=== PATIENT | male | born 1945 | race Caucasian/White ===

== ENCOUNTER 2016-11-06 11:48 | Inpatient (IN) ==
[2016-11-06] MEDS: Budesonide/Formoterol 160/4.5 MDI IH SCH (16:25)
[2016-11-06] MEDS: MOM Conc 10 ML UD.LIQ PO PRN (16:26)
[2016-11-07 04:33] LABS: Basophils # 0.1 K/mcL (0.0-0.2); Basophils % 0.8 %; Eosinophils # 0.4 K/mcL (0.0-0.6); Eosinophils % 6.2 %; Hematocrit 40.2 % (37.5-50.1); Hemoglobin 12.7 g/dL (12.9-16.9); Immature Granulocytes % 0.5 % (0-4); Lymphocytes # 1.3 K/mcL (0.6-4.6); Lymphocytes % 20.4 %; Mean Corpuscular HGB Conc 31.6 g/dL (31.6-35.5); Mean Corpuscular Hemoglobin 23.7 pg (28.0-33.3); Mean Corpuscular Volume 75.1 fL (83.0-100.0); Mean Platelet Volume 9.4 fL (9.4-12.4); Monocytes # 0.6 K/mcL (0.0-1.3); Monocytes % 9.4 %; Neutrophils # 3.9 K/mcL (1.6-8.9); Platelet Count 320 K/mcL (140-400); Red Blood Count 5.35 M/mcL (4.19-5.50); Red Cell Distribution Width 16.3 % (11.5-14.5); Segmented Neutrophils % 62.7 %
[2016-11-07 04:41] LABS: INR 1.3; Prothrombin Time 13.6 Seconds (9.4-12.1)
[2016-11-07 04:43] LABS: Activated Partial Thrombo Time 36.1 Seconds (26.0-36.0)
[2016-11-07 04:50] LABS: BUN/Creatinine Ratio 22 (6-26); Blood Urea Nitrogen 21 mg/dL (8-26); Carbon Dioxide 26 mEq/L (19-29); Chloride 102 mEq/L (98-109); Glucose 99 mg/dL (70-99); Osmolality,Calculated 293 (280-300); Potassium 4.2 mEq/L (3.5-4.5); Sodium 140 mEq/L (136-145); eGFR For African Americans > 60 (> 60); eGFR For Non-African Americans > 60 (> 60)
[2016-11-07] MEDS ORDERED: Aspirin 325 MG TABLET PO SCH (09:00)
[2016-11-07] MEDS ORDERED: levoFLOXacin 500 MG TABLET PO SCH (09:00)
[2016-11-07] MEDS: MOM Conc 10 ML UD.LIQ PO PRN (09:02)
[2016-11-07] MEDS: amLODIPine 5 MG TABLET PO SCH (09:03)
[2016-11-07] MEDS: Vitamin B Complex/Vit C/Vit E 1 EACH TABLET PO SCH (09:03)
[2016-11-07] MEDS: Diltiazem CD (24hr) 120 MG CAPSULE PO SCH (09:03)
[2016-11-07] MEDS: Cholecalciferol (D-3) 1,000 UNIT TABLET PO SCH (09:04)
[2016-11-07] MEDS: Finasteride 5 MG TABLET PO SCH (09:04)
[2016-11-07] MEDS: INCRUSE ELLIPTA IH SCH (09:06)
[2016-11-07] MEDS: OMEGA 3 FISH OIL PO SCH (09:07)
[2016-11-07] MEDS: Budesonide/Formoterol 160/4.5 MDI IH SCH ×2 (09:54→22:54)
[2016-11-07] MEDS ORDERED: Ibuprofen 400 MG TABLET PO ONE (13:53)
--- NOTE | 2016-11-07 16:26 | Internal Med History&Physical ---
Date of Encounter: 11/07/16 Time of Encounter: 15:50 Assessment and Plan (1) Pubic ramus fracture Current visit: No Status: Acute Continue PT and OT intervention with analgesics. Qualifiers: Encounter type: initial encounter Fracture type: closed Laterality: left Qualified Code(s): S32.592A - Other specified fracture of left pubis, initial encounter for closed fracture (2) Anemia Current visit: Yes Status: Chronic We will order anemia testing in a.m. Qualifiers: Anemia type: unspecified type Qualified Code(s): D64.9 - Anemia, unspecified (3) Gout Current visit: Yes Status: Chronic We will check uric acid level in a.m. Qualifiers: Gout site: unspecified site Gout etiology: unspecified cause Chronicity: chronic Presence of tophus: without tophus Qualified Code(s): M1A.9XX0 - Chronic gout, unspecified, without tophus (tophi) (4) Hypothyroid Current visit: Yes Status: Chronic We will check TSH level in a.m. Qualifiers: Hypothyroidism type: unspecified Qualified Code(s): E03.9 - Hypothyroidism , unspecified (5) HTN (hypertension) Current visit: No Status: Chronic Continue Norvasc, Cardizem, and Lopressor. Qualifiers: Hypertension type: essential hypertension Qualified Code(s): I10 - Essential (primary) hypertension Internal Medicine - H&P: HPI Chief complaint: Pelvic fracture Admitted From: Hospital to Hospital Transfer Plans for Post Hospital Care: Home History of present illness: Mr. Marley is a 71 year old male who was hospitalized at [facility] November 01 after experiencing a fall fracturing the left pubic ramus review was treated nonoperatively and discharged to [facility] swing bed for rehabilitation therapy prior to returning to independent living at home. His musk skeletal history is significant for 2 previous left hip replacement ( June 2012 and July 2013), right wrist fracture, left shoulder injury with rotator cuff repair, right rotator cuff repair, and distal left femoral fracture. He also claims a history of gout. Past Med Surg Social Fam HX - Past Medical History Medical history: COPD, GERD, hepatitis, hyperlipidemia, hypertension, thyroid disease, other Psychiatric history: anxiety, depression - Past Surgical History Surgical History: appendectomy, orthopedic, other, other - Social History Smoking Status: Former smoker Smokeless Tobacco Status: No Alcohol use: none Drug use: none - Family History Father Adopted: Yes (pt has no knowledge of family history) Internal Medicine - H&P: Meds Acetaminophen [Tylenol] 500 mg PO Q6HR PRN 09/02/15 [History] Albuterol Sulfate [Ventolin Hfa] 2 puff IH Q4H 09/02/15 [History] Amlodipine Besylate 2.5 mg PO DAILY 09/02/15 [History] Budesonide/Formoterol 160/4.5 [Symbicort 160/4.5] 2 puff IH BIDR 09/02/15 [ History] Cholecalciferol (Vitamin D3) [Vitamin D3] 1,000 unit PO DAILY 09/02/15 [History] Diltiazem HCl [Diltiazem ER] 120 mg PO DAILY 09/02/15 [History] Doxepin HCl 25 mg PO BID 09/02/15 [History] Finasteride [Proscar] 5 mg PO DAILY 09/02/15 [History] Levothyroxine [Synthroid] 37.5 mcg PO DAILY 09/02/15 [History] Metoprolol [Lopressor] 25 mg PO BID 09/02/15 [History] [place]-3/Dha/Epa/Fish Oil [Fish Oil 1,000 mg Softgel] 1 cap PO DAILY 09/02/15 [ History] Omeprazole [PriLOSEC] 20 mg PO DAILY 09/02/15 [History] Simvastatin [Zocor] 20 mg PO HS 09/02/15 [History] Vitamin B Complex Vit C No.3 [B Complex with Vitamin C] 1 cap PO DAILY 09/02/15 [History] Solifenacin Succinate [Vesicare] 10 mg PO DAILY 11/02/16 [History] Umeclidinium Drew [Incruse Ellipta] 1 puff IH DAILY 11/02/16 [History] Aspirin 325 mg PO DAILY #30 tablet 11/06/16 [Rx] Docusate [Colace] 100 mg PO BID PRN cap 11/06/16 [Rx] GuaiFENesin/Dextromethorphan [Robitussin/Dm] 10 ml PO Q6HR PRN 11/06/16 [Rx] OxyCODONE/APAP 5/325 [Percocet 5/325 MG] 1 each PO Q6HR PRN #14 tab 11/06/16 [Rx ] levoFLOXacin [Levaquin] 500 mg PO DAILY 5 Days 11/06/16 [Rx] Allergies No Known Allergies Allergy (Verified 12/21/15 21:40) All Systems PM: A 10-system review of systems was performed and is negative for pertinent findings except as documented above in the HPI. Review of systems: Gen.: He states his weight has fluctuated several pounds in the past few years based on his need and use of Synthroid Cardiovascular: He has history of hypertension but denies NC heart failure angina DVT or pulmonary embolus. Reports a negative exercise test approximately 10 years ago Respiratory: He smoked from age [age] up to 2 packs per day. Has a diagnosis of COPD but does not use home oxygen. He gets dyspneic occasionally on exertion. GI: He was a past IV drug user and has history of hepatitis C. He has not received treatment. He denies other disorders of his liver gallbladder or exocrine pancreas : He has BPH. He denies other kidney or bladder disorders Neurologic: He denies large distribution strokes or seizures. 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 He does not use assistive device for walking. Endocrine: He has hypothyroidism and hyperlipidemia. He denies diabetes Hematology/oncology: He has had anemia in the past. He denies internal malignancies or other blood disorders Psychiatric: He has had joanie in the past and has anxiety at times. Denies other mental health issues Musk skeletal: As per history of present illness - Constitutional Vitals: Temp Pulse Resp BP Pulse Ox 98.5 F 62 20 116/77 92 11/07/16 15:28 11/07/16 15:28 11/07/16 15:28 11/07/16 15:28 11/07/16 15:28 Exam: Gen.: He is a well-developed well-nourished male lying in bed who appears in no acute distress HEENT: Head is atraumatic and normocephalic. Eyes: EOMI. There is no scleral icterus. Mouth: Mucosa is moist. Neck: Supple and nontender. There is no thyromegaly or adenopathy noted. Heart: Regular without murmurs gallops or ectopics Lungs: No wheezes or crackles are heard. Abdomen: Soft and nontender. No masses or guarding are noted. Extremities: There is no cyanosis edema or clubbing noted. Dorsalis pedis and posterior tibial pulses are trace palpable bilaterally. His feet are warm to touch. Neurologic: Mental status: He is talkative and a good historian. Cranial nerves : Smile is symmetric. Forehead wrinkles bilaterally. Tongue protrudes midline. EOMI. He is slightly hard of hearing. Motor: There is no pronator drift. Cerebellar: Finger to nose is intact bilaterally. Skin: Warm and dry Internal Med - H&P Results - Labs CBC & Chem 7: 11/07/16 04:25 11/07/16 04:25 Labs: Short CBC 11/07/16 Range/Units 04:25 WBC 6.3 (4.3-11.1) K/mcL Hgb 12.7 L (12.9-16.9) g/dL Hct 40.2 (37.5-50.1) % Plt Count 320 (140-400) K/mcL Neutrophils # 3.9 (1.6-8.9) K/mcL BMP 11/07/16 04:25 Sodium 140 Potassium 4.2 Chloride 102 Carbon Dioxide 26 BUN 21 Creatinine 0.97 Glucose 99 Calcium 10.0
[2016-11-07] MEDS: *HR* OxyCODONE/APAP 5/325 TABLET PO PRN (21:09)
[2016-11-08 05:14] LABS: Basophils # 0.1 K/mcL (0.0-0.2); Basophils % 0.9 %; Eosinophils # 0.4 K/mcL (0.0-0.6); Eosinophils % 7.8 %; Hematocrit 39.2 % (37.5-50.1); Hemoglobin 12.4 g/dL (12.9-16.9); Immature Granulocytes % 0.4 % (0-4); Lymphocytes % 17.3 %; Mean Corpuscular HGB Conc 31.6 g/dL (31.6-35.5); Mean Corpuscular Hemoglobin 23.9 pg (28.0-33.3); Mean Corpuscular Volume 75.5 fL (83.0-100.0); Mean Platelet Volume 9.7 fL (9.4-12.4); Monocytes # 0.5 K/mcL (0.0-1.3); Monocytes % 9.4 %; Neutrophils # 3.6 K/mcL (1.6-8.9); Platelet Count 326 K/mcL (140-400); Red Blood Count 5.19 M/mcL (4.19-5.50); Red Cell Distribution Width 16.1 % (11.5-14.5); Segmented Neutrophils % 64.2 %
[2016-11-08 05:54] LABS: Thyroid Stimulating Hormone 2.593 mcIU/mL (0.350-4.840)
[2016-11-08] MEDS: Diltiazem CD (24hr) 120 MG CAPSULE PO SCH (10:11)
[2016-11-08] MEDS: amLODIPine 5 MG TABLET PO SCH (10:12)
[2016-11-08] MEDS: Vitamin B Complex/Vit C/Vit E 1 EACH TABLET PO SCH (10:13)
[2016-11-08] MEDS: OMEGA 3 FISH OIL PO SCH (10:13)
[2016-11-08] MEDS: Finasteride 5 MG TABLET PO SCH (10:13)
[2016-11-08] MEDS: Cholecalciferol (D-3) 1,000 UNIT TABLET PO SCH (10:14)
--- NOTE | 2016-11-08 10:34 | Internal Med Progress Note ---
Date of Encounter: 11/08/16 Time of Encounter: 10:25 - Assessment and plan (1) Pubic ramus fracture Current Visit: No Status: Acute Assessment and plan: November 08. Continue PT and OT intervention with analgesics. Qualifiers: Encounter type: initial encounter Fracture type: closed Laterality: left Qualified Code(s): S32.592A - Other specified fracture of left pubis, initial encounter for closed fracture (2) Anemia Current Visit: Yes Status: Chronic Assessment and plan: November 08. Anemia testing is pending Qualifiers: Anemia type: unspecified type Qualified Code(s): D64.9 - Anemia, unspecified (3) Gout Current Visit: Yes Status: Chronic Assessment and plan: November 08. Uric acid level acceptable at 5.0. Qualifiers: Gout site: unspecified site Gout etiology: unspecified cause Chronicity: chronic Presence of tophus: without tophus Qualified Code(s): M1A.9XX0 - Chronic gout, unspecified, without tophus (tophi) (4) Hypothyroid Current Visit: Yes Status: Chronic Assessment and plan: November 08. TSH level was normal at 2.593. Tinea present dose Synthroid Qualifiers: Hypothyroidism type: unspecified Qualified Code(s): E03.9 - Hypothyroidism , unspecified (5) HTN (hypertension) Current Visit: No Status: Chronic Assessment and plan: November 08. Continue Norvasc, Cardizem, and Lopressor Qualifiers: Hypertension type: essential hypertension Qualified Code(s): I10 - Essential (primary) hypertension - Subjective Interval history: November 08. He has no new complaints and feels well. - Constitutional Vitals: Temp Pulse Resp BP Pulse Ox 97.6 F 72 16 125/75 97 11/08/16 07:34 11/08/16 07:34 11/08/16 07:34 11/08/16 07:34 11/08/16 07:34 Exam: He is sitting in a chair at bedside and appears comfortable. His affect is bright and cheerful. I reviewed his medications and lab results. Internal Medicine: Result - Labs CBC & Chem 7: 11/08/16 04:10 11/07/16 04:25 Labs: Short CBC 11/08/16 Range/Units 04:10 WBC 5.7 (4.3-11.1) K/mcL Hgb 12.4 L (12.9-16.9) g/dL Hct 39.2 (37.5-50.1) % Plt Count 326 (140-400) K/mcL Neutrophils # 3.6 (1.6-8.9) K/mcL - ABG Interpretation ABG results: PT/INR, D-dimer PT 13.6 Seconds (9.4-12.1) H 11/07/16 04:25 Consult Discharge Plan - Plan Referrals: Richardson Spring MD [Primary Care Provider] - 1 week
[2016-11-08] MEDS: Budesonide/Formoterol 160/4.5 MDI IH SCH ×2 (10:48→22:31)
[2016-11-08] MEDS: *HR* OxyCODONE/APAP 5/325 TABLET PO PRN ×2 (11:34→22:11)
[2016-11-08] MEDS: INCRUSE ELLIPTA IH SCH (11:35)
[2016-11-08 18:10] LABS: Folate 10.5 ng/mL (7.0-31.4)
[2016-11-09] MEDS: Diltiazem CD (24hr) 120 MG CAPSULE PO SCH (08:57)
[2016-11-09] MEDS: amLODIPine 5 MG TABLET PO SCH (08:57)
[2016-11-09] MEDS: Finasteride 5 MG TABLET PO SCH (08:58)
[2016-11-09] MEDS: Vitamin B Complex/Vit C/Vit E 1 EACH TABLET PO SCH (08:58)
[2016-11-09] MEDS: Cholecalciferol (D-3) 1,000 UNIT TABLET PO SCH (08:58)
[2016-11-09] MEDS: Budesonide/Formoterol 160/4.5 MDI IH SCH ×2 (10:42→22:31)
[2016-11-09] MEDS: INCRUSE ELLIPTA IH SCH (10:45)
[2016-11-09] MEDS: *HR* OxyCODONE/APAP 5/325 TABLET PO PRN (14:15)
[2016-11-10] MEDS: *HR* OxyCODONE/APAP 5/325 TABLET PO PRN ×2 (02:16→16:09)
[2016-11-10] MEDS: Vitamin B Complex/Vit C/Vit E 1 EACH TABLET PO SCH (08:54)
[2016-11-10] MEDS: Cholecalciferol (D-3) 1,000 UNIT TABLET PO SCH (08:54)
[2016-11-10] MEDS: Diltiazem CD (24hr) 120 MG CAPSULE PO SCH (08:54)
[2016-11-10] MEDS: Finasteride 5 MG TABLET PO SCH (08:54)
[2016-11-10] MEDS: amLODIPine 5 MG TABLET PO SCH (08:54)
[2016-11-10] MEDS: Budesonide/Formoterol 160/4.5 MDI IH SCH ×2 (09:23→21:52)
[2016-11-10] MEDS: Baclofen 10 MG TABLET PO PRN (09:27)
[2016-11-10] MEDS: INCRUSE ELLIPTA IH SCH (09:33)
--- NOTE | 2016-11-10 10:27 | Internal Med Progress Note ---
Date of Encounter: 11/10/16 Time of Encounter: 10:20 - Assessment and plan (1) Pubic ramus fracture Current Visit: No Status: Acute Assessment and plan: November 08. Continue PT and OT intervention with analgesics. Qualifiers: Encounter type: initial encounter Fracture type: closed Laterality: left Qualified Code(s): S32.592A - Other specified fracture of left pubis, initial encounter for closed fracture (2) Anemia Current Visit: Yes Status: Chronic Assessment and plan: November 08. Anemia testing is pending November 10. Anemia testing consistent with iron deficiency. He states he was taking aspirin 81 mg daily for "prevention". Will discontinue this and give ferrous sulfate and vitamin C. Qualifiers: Anemia type: unspecified type Qualified Code(s): D64.9 - Anemia, unspecified (3) Gout Current Visit: Yes Status: Chronic Assessment and plan: November 08. Uric acid level acceptable at 5.0. Qualifiers: Gout site: unspecified site Gout etiology: unspecified cause Chronicity: chronic Presence of tophus: without tophus Qualified Code(s): M1A.9XX0 - Chronic gout, unspecified, without tophus (tophi) (4) Hypothyroid Current Visit: Yes Status: Chronic Assessment and plan: November 08. TSH level was normal at 2.593. Continue present dose Synthroid Qualifiers: Hypothyroidism type: unspecified Qualified Code(s): E03.9 - Hypothyroidism , unspecified (5) HTN (hypertension) Current Visit: No Status: Chronic Assessment and plan: November 08. Continue Norvasc, Cardizem, and Lopressor Qualifiers: Hypertension type: essential hypertension Qualified Code(s): I10 - Essential (primary) hypertension - Subjective Interval history: November 08. He has no new complaints and feels well. November 10. He has no new complaints. - Constitutional Vitals: Temp Pulse Resp BP Pulse Ox 98.2 F 58 15 119/85 87 11/09/16 19:27 11/09/16 19:27 11/10/16 09:28 11/09/16 19:27 11/10/16 09:28 Exam: He is ambulating in the hallway with a wheeled walker. He is in no acute distress. His affect is bright and cheerful. I reviewed his medications and lab results. Internal Medicine: Result - Labs CBC & Chem 7: 08/13/17 04:10 11/07/16 04:25 - ABG Interpretation ABG results: PT/INR, D-dimer PT 13.6 Seconds (9.4-12.1) H 11/07/16 04:25 Consult Discharge Plan - Plan Referrals: Richardson Spring MD [Primary Care Provider] - 1 week
[2016-11-11] MEDS: Ascorbic Acid 500 MG TABLET PO SCH (06:29)
[2016-11-11] MEDS: Diltiazem CD (24hr) 120 MG CAPSULE PO SCH (08:08)
[2016-11-11] MEDS: amLODIPine 5 MG TABLET PO SCH (08:08)
[2016-11-11] MEDS: Vitamin B Complex/Vit C/Vit E 1 EACH TABLET PO SCH (08:08)
[2016-11-11] MEDS: Finasteride 5 MG TABLET PO SCH (08:08)
[2016-11-11] MEDS: Cholecalciferol (D-3) 1,000 UNIT TABLET PO SCH (08:10)
[2016-11-11] MEDS: Baclofen 10 MG TABLET PO PRN (09:20)
[2016-11-11] MEDS: Budesonide/Formoterol 160/4.5 MDI IH SCH ×2 (09:40→22:40)
[2016-11-11] MEDS: INCRUSE ELLIPTA IH SCH (09:40)
[2016-11-11] MEDS: *HR* OxyCODONE/APAP 5/325 TABLET PO PRN ×2 (12:13→20:10)
[2016-11-12] MEDS: Ascorbic Acid 500 MG TABLET PO SCH (05:32)
[2016-11-12 06:26] VITALS: BP 124/80
[2016-11-12] MEDS: Diltiazem CD (24hr) 120 MG CAPSULE PO SCH (07:57)
[2016-11-12] MEDS: Cholecalciferol (D-3) 1,000 UNIT TABLET PO SCH (07:57)
[2016-11-12] MEDS: Vitamin B Complex/Vit C/Vit E 1 EACH TABLET PO SCH (07:57)
[2016-11-12] MEDS: Finasteride 5 MG TABLET PO SCH (07:57)
[2016-11-12] MEDS: amLODIPine 5 MG TABLET PO SCH (07:57)
[2016-11-12] MEDS: INCRUSE ELLIPTA IH SCH (07:59)
--- NOTE | 2016-11-12 09:54 | Discharge Summary ---
Date of Encounter: 11/12/16 Time of Encounter: 09:40 - Discharge Diagnosis (1) Pubic ramus fracture Priority: Primary Status: Acute Qualifiers: Encounter type: initial encounter Fracture type: closed Laterality: left Qualified Code(s): S32.592A - Other specified fracture of left pubis, initial encounter for closed fracture (2) Anemia Priority: Secondary Status: Chronic Qualifiers: Anemia type: iron deficiency Iron deficiency anemia type: unspecified iron deficiency Qualified Code(s): D50.9 - Iron deficiency anemia, unspecified (3) Gout Priority: Secondary Status: Chronic Qualifiers: Gout site: unspecified site Gout etiology: unspecified cause Chronicity: chronic Presence of tophus: without tophus Qualified Code(s): M1A.9XX0 - Chronic gout, unspecified, without tophus (tophi) (4) Hypothyroid Priority: Secondary Status: Chronic Qualifiers: Hypothyroidism type: unspecified Qualified Code(s): E03.9 - Hypothyroidism , unspecified (5) HTN (hypertension) Priority: Secondary Status: Chronic Qualifiers: Hypertension type: essential hypertension Qualified Code(s): I10 - Essential (primary) hypertension - Discharge Medications Prescriptions: Ascorbic Acid [Vitamin C] 500 mg PO DAILY@0630 #30 tab Ferrous Sulfate 325 mg PO DAILY@0630 #30 tab Home Medications: Acetaminophen [Tylenol] 500 mg PO Q6HR PRN 09/02/15 [History] Albuterol Sulfate [Ventolin Hfa] 2 puff IH Q4H 09/02/15 [History] Amlodipine Besylate 2.5 mg PO DAILY 09/02/15 [History] Budesonide/Formoterol 160/4.5 [Symbicort 160/4.5] 2 puff IH BIDR 09/02/15 [ History] Cholecalciferol (Vitamin D3) [Vitamin D3] 1,000 unit PO DAILY 09/02/15 [History] Diltiazem HCl [Diltiazem ER] 120 mg PO DAILY 09/02/15 [History] Doxepin HCl 25 mg PO BID 09/02/15 [History] Finasteride [Proscar] 5 mg PO DAILY 09/02/15 [History] Levothyroxine [Synthroid] 37.5 mcg PO DAILY 09/02/15 [History] Metoprolol [Lopressor] 25 mg PO BID 09/02/15 [History] [place]-3/Dha/Epa/Fish Oil [Fish Oil 1,000 mg Softgel] 1 cap PO DAILY 09/02/15 [ History] Omeprazole [PriLOSEC] 20 mg PO DAILY 09/02/15 [History] Simvastatin [Zocor] 20 mg PO HS 09/02/15 [History] Vitamin B Complex Vit C No.3 [B Complex with Vitamin C] 1 cap PO DAILY 09/02/15 [History] Solifenacin Succinate [Vesicare] 10 mg PO DAILY 11/02/16 [History] Umeclidinium [place] [Incruse Ellipta] 1 puff IH DAILY 11/02/16 [History] Docusate [Colace] 100 mg PO BID PRN cap 11/06/16 [Rx] GuaiFENesin/Dextromethorphan [Robitussin/Dm] 10 ml PO Q6HR PRN 11/06/16 [Rx] OxyCODONE/APAP 5/325 [Percocet 5/325 MG] 1 each PO Q6HR PRN #14 tab 11/06/16 [Rx ] Ascorbic Acid [Vitamin C] 500 mg PO DAILY@0630 #30 tab 11/12/16 [Rx] Ferrous Sulfate 325 mg PO DAILY@0630 #30 tab 11/12/16 [Rx] Allergies/Adverse Reactions: No Known Allergies Allergy (Verified 12/21/15 21:40) Date of admission: 11/06/16 11:53 Primary care physician: Richardson Spring Consults: 11/06/16 12:37 Consult to Occupational Therapy [CONS] Routine Comment: eval, develop, implement plan of care Reason for Consult: eval, develop, implement plan of care Consult to Physical Therapy [CONS] Routine Comment: eval, develop, implement plan of care Reason for Consult: eval, develop, implement plan of care Consult to Consulting Marine Engineer [CONS] Routine Reason for SW Consult: multi falls - Patient Status Disposition: Home, Self-Care Functional capacity at discharge: uses cane/walker Overall status at discharge: patient is progressing back to baseline - Discharge Instructions Follow Up With: Richardson Spring MD [Primary Care Provider] - 1 week - Diet and Activity Activity: as per physical therapy Diet: advance to your usual diet Hospital course: Mr. Marley is a 71 year old male who was hospitalized at [facility] November 01- after experiencing a fall fracturing the left pubic ramus review was treated nonoperatively and discharged to [facility] swing bed for rehabilitation therapy prior to returning to independent living at home. Initial orders were written by the emergency room physician. I saw him on November 07 and performed a history and physical. He had PT and OT evaluations with ongoing interventions. He made satisfactory progress. There were no complications and on November 12 he was felt stable for discharge home. He will follow with his PCP within one week. He will follow with orthopedist as directed. Anemia testing showed iron 39, transferrin saturation 9%, transferrin 299, ferritin 27, B12 715, and folate 10.5. Aspirin was discontinued and he was started on ferrous sulfate with vitamin C. These will be continued after discharge. Uric acid returned satisfactory at 5.0. - Time Spent with Patient Total time spent providing and/or coordinating discharge services: - Constitutional Vitals: Temp Pulse Resp BP Pulse Ox 98.2 F 79 16 124/80 94 11/12/16 06:22 11/12/16 06:22 11/12/16 06:22 11/12/16 06:22 11/12/16 06:22
== END 2016-11-12 10:40 | disposition home or self-care (01) | DRG 561 ==
LOC: INPPIK 11:53
PROVIDERS: ADMIT Internal Medicine; ATTEND Internal Medicine